=== PATIENT | female | born 1980 | race Caucasian/White ===

== ENCOUNTER 2018-03-18 16:10 | Outpatient (REF) | payer OTHER, SELFPAY ==
--- NOTE | 2018-03-18 16:10 | PAPNONF_PTH ---
PATIENT: Kelin Lee LOC: [facility] U#:[id number] AGE/SX: 37/F ROOM: RE03/18/[address]: Geraldine Suarez MD : [id number] BED: DIS: 03/18/2018 SPEC #: [id number] RECD: 03/18/18 18:08 STATUS: ANASTASIA REQ #: [id number] ANDREW: 03/18/18 16:[address]: Geraldine Suarez DEPT: [facility] Cytology RECD BY: Eugenia Mac Tissues: 1 - BODY FLUID CYTO-NIPPLE DC 2 - BODY FLUID CYTO-NIPPLE DC Procedures: BODY FLUID CYTO(NIPPLE DC)[facility] Comments: [id number]
== END 2018-03-18 16:30 ==
LOC: LBN 16:10
PROVIDERS: Visit Provider Obstetrics & Gynecology
DX: N64.52 Nipple discharge (principal)
CPT/HCPCS: 88104

== ENCOUNTER 2018-03-19 07:08 | Outpatient (CLI) | payer OTHER, SELFPAY ==
[2018-03-19 08:04] LABS: HGB 14.4 g/dL (12.0-15.5); Mean Corp. HGB Concentration 32.7 g/dL (32.0-36.0); Mean Corpuscular Hemoglobin 30.1 pg (27.0-33.0); Mean Corpuscular Volume 92.1 fL (80-95); Mean Platelet Volume 10.6 fL (8.0-11.0); Platelet Count 210 x1000/uL (130-400); RBC 4.78 m/cumm (4.00-5.20); RBC Distribution Width 12.4 % (11.7-14.6); White Blood Cell Count 4.12 k/cumm (4.4-10.8)
[2018-03-19 09:13] LABS: ALT 22 U/L (12-78); AST 15 U/L (15-37); Alkaline Phosphatase 54 U/L (46-116); Anion Gap 7.3 mmol/L (3-11); BUN 15 mg/dL (7-18); Bilirubin, Total 0.4 mg/dL (0.2-1.0); CO2 30.7 mmol/L (21.0-32.0); CREATININE 0.78 mg/dL (0.55-1.02); Calcium 8.8 mg/dL (8.5-10.1); Chloride 103 mmol/L (98-107); Glucose 96 mg/dL (70-100); Potassium 4.3 mmol/L (3.5-5.1); Sodium 141 mmol/L (136-145); Total Protein 7.3 g/dL (6.4-8.2)
[2018-03-20 11:15] LABS: Prolactin 9.4 ng/ml
== END 2018-03-19 07:28 ==
PROVIDERS: Visit Provider Obstetrics & Gynecology
DX: N64.3 Galactorrhea not associated with childbirth (principal); R53.83 Other fatigue
CPT/HCPCS: 36415; 80053; 85027; 84146; 84443

== ENCOUNTER 2023-04-22 05:15 | Outpatient (CLI) | payer BC, SELFPAY ==
[2023-04-22 07:47] LABS: Abs Immature Grans 0.02 10^3/uL (0.0-0.06); Absolute Basophil Count 0.03 10^3/uL (0.0-0.2); Absolute Eosinophil Count 0.06 10^3/uL (0.0-0.7); Absolute Lymphocyte Count 1.76 10^3/uL (1.2-3.4); Absolute Monocyte Count 0.24 10^3/uL (0.1-0.8); Absolute Neutrophil Count 3.67 10^3/uL (1.2-6.7); Basophils % 0.5; Immature Grans % 0.3; Lymphocytes % 30.4; MCH 29.4 pg (27.0-33.0); MCHC 33.3 % (32.0-36.0); MCV 88 fL (80-95); MPV 9.6 fL (8.0-11.0); Monocytes % 4.2; Neutrophils % 63.6; Platelet Count 267 10^3/uL (130-400); RBC 4.76 10^6/uL (3.93-5.22); RDW 11.9 % (11.7-14.6); WBC 5.78 10^3/uL (4.4-10.8)
[2023-04-22 08:21] LABS: Hemoglobin A1C 5.2 % (<5.7)
[2023-04-22 08:43] LABS: Vitamin D 25 Total 24.7 ng/mL (30-100)
[2023-04-22 08:51] LABS: ALT 29 U/L (14-59); AST 16 U/L (15-37); Albumin 4.1 g/dL (3.4-5.0); Alkaline Phosphatase 68 U/L (46-116); Anion Gap 5.6 mmol/L (3-11); BUN 13 mg/dL (7-18); Bilirubin, Total 0.3 mg/dL (0.2-1.0); CO2 28.4 mmol/L (21.0-32.0); Calcium 9.1 mg/dL (8.5-10.1); Calculated LDL 130 mg/dL (<100); Chloride 101 mmol/L (98-107); Cholesterol 211 mg/dL (<200); Estimated GFR 71.69 (mL/min/1.73m2); Ferritin 135 ng/mL (8-252); Glucose 97 mg/dL (74-106); HDL Cholesterol 64 mg/dL (40-60); Potassium 4.1 mmol/L (3.5-5.1); Sodium 135 mmol/L (136-145); TSH 1.87 uIU/mL (0.36-3.74); Total Protein 7.9 g/dL (6.4-8.2); Triglyceride 89 mg/dL (<150)
[2023-04-22 09:31] LABS: FREE T4 0.91 ng/dL (0.76-1.46)
[2023-04-22 17:23] LABS: T3,Free 4.1 pg/mL (2.8-5.3)
[2023-04-23 08:29] LABS: Homocysteine 7.6 umol/L (5.0-13.9)
[2023-04-23 22:01] LABS: Zinc, S 90 mcg/dL (60-106)
[2023-04-24 09:48] LABS: Lipoprotein (a) 77 nmol/L (<75)
[2023-04-25 09:46] LABS: Insulin 4.7 uIU/mL (<29.0)
[2023-04-25 11:07] LABS: Free Retinol (Vitamin A) 56.6 mcg/dL (32.5-78.0)
== END 2023-04-22 05:16 | disposition home or self-care (01) ==
PROVIDERS: Visit Provider Naturopath
DX: B00.52 Herpesviral keratitis (principal); E78.5 Hyperlipidemia, unspecified; E55.9 Vitamin D deficiency, unspecified; R63.5 Abnormal weight gain
CPT/HCPCS: 36415; 80053; 80061; 82306; 83090; 83695; 84630; 82728; 83036; 83525; 84439; 84443; 84481; 84590; 85025